=== PATIENT | female | born 1980 | race Two or more races ===

== ENCOUNTER 2018-02-21 23:21 | Emergency (ER) | payer BC, OTHER ==
[~2018-02-21] VITALS: Ht 144.8 cm; Wt 72.6 kg
[2018-02-21 23:54] VITALS: BP 107/72
[2018-02-22] MEDS ORDERED: diphenhydrAMINE HCL 25 MG CAPSULE PO ONE (00:30)
[2018-02-22] MEDS ORDERED: DEXAMETHASONE SOD PHOSPHATE 10 MG/ML VIAL IM ONE (00:30)
[2018-02-22] MEDS ORDERED: FAMOTIDINE (20 MG) 20 MG TABLET PO ONE (00:30)
[2018-02-22] MEDS ORDERED: FAMOTIDINE (20 MG) 20 MG TABLET ONE (00:44)
[2018-02-22] MEDS ORDERED: DEXAMETHASONE SOD PHOSPHATE 10 MG/ML VIAL ONE (00:44)
[2018-02-22] MEDS ORDERED: diphenhydrAMINE HCL 25 MG CAPSULE ONE (00:44)
--- NOTE | 2018-02-22 00:59 | NUR ---
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
== END 2018-02-22 01:03 | disposition home or self-care (01) ==
LOC: ER 23:26
DX: R21 Rash and other nonspecific skin eruption (principal); R22.0 Localized swelling, mass and lump, head; Z98.51 Tubal ligation status; T48.4X5A Adverse effect of expectorants, initial encounter; Y92.89 Other specified places as the place of occurrence of the external cause
CPT/HCPCS: A4606; J1100; Q0163; Z7610